=== PATIENT | male | born 1945 | race Caucasian/White ===

== ENCOUNTER → 2016-12-11 | Outpatient (CLI) | payer MEDICARE ==
[2016-12-11 08:59] LABS: CH 30.4; CHCM 33.6; HCT 43.3 % (39.0-53.0); HDW 2.45; HGB 14.8 gm/dL (13.0-17.5); MCHC 34.2 g/dL (31.0-37.0); MCV 90.7 fL (80.0-100.0); Mean Platelet Volume 6.4; RBC 4.77 m/uL (4.30-5.90); RDW 12.5 % (11.5-15.5); WBC 8.1 k/uL (3.8-10.6)
[2016-12-11 09:55] LABS: ALT 50 U/L (21-72); AST 42 U/L (17-59); Alkaline Phosphatase 81 U/L (38-126); Anion Gap 13 mmol/L; Blood Urea Nitrogen 32 mg/dL (9-20); Calcium 9.8 mg/dL (8.4-10.2); Carbon Dioxide 26 mmol/L (22-30); Chloride 103 mmol/L (98-107); Cholesterol 139 mg/dL (<200); Glucose 106 mg/dL (74-99); HDL Cholesterol 39 mg/dL (40-60); Non-African American GFR(MDRD) 51 (>60 ml/min/1.73 sqM); Potassium 5.3 mmol/L (3.5-5.1); Sodium 142 mmol/L (137-145); Total Bilirubin 0.9 mg/dL (0.2-1.3); Total Protein 7.8 g/dL (6.3-8.2); Triglycerides 108 mg/dL (<150)
[2016-12-11 10:42] LABS: Hepatitis C Virus IgG Ab Negative (Negative); Hepatitis C Virus IgG Index 0.01
== END | disposition home or self-care (01) ==
LOC: LABWHC1 08:02
PROVIDERS: ATTEND Internal Medicine Interventional Cardiology
DX: E78.2 Mixed hyperlipidemia (principal); R53.83 Other fatigue; Z11.59 Encounter for screening for other viral diseases; Z12.5 Encounter for screening for malignant neoplasm of prostate
CPT/HCPCS: 36415; 80053; 80061; 84153; 85027; 86803

== ENCOUNTER → 2018-03-03 | Outpatient (CLI) | payer MEDICARE ==
[2018-03-03 08:55] LABS: Calcium 9.7 mg/dL (8.4-10.2); Potassium 5.3 mmol/L (3.5-5.1); Uric Acid 5.7 mg/dL (3.5-8.5)
== END | disposition home or self-care (01) ==
LOC: LABWHC1 07:18
PROVIDERS: ATTEND Internal Medicine Interventional Cardiology
DX: M10.9 Gout, unspecified (principal); E87.8 Other disorders of electrolyte and fluid balance, not elsewhere classified; E78.2 Mixed hyperlipidemia
CPT/HCPCS: 36415; 80048; 80061; 84450; 84460; 84550

== ENCOUNTER → 2018-06-07 | Outpatient (CLI) | payer MEDICARE ==
[2018-06-07 08:25] LABS: HCT 46.9 % (39.0-53.0); HGB 15.3 gm/dL (13.0-17.5); MCH 31.1 pg (25.0-35.0); MCHC 32.6 g/dL (31.0-37.0); MCV 95.2 fL (80.0-100.0); Mean Platelet Volume 6.6; Platelet Count 246 k/uL (150-450); RBC 4.93 m/uL (4.30-5.90); RDW 12.9 % (11.5-15.5); WBC 8.4 k/uL (3.8-10.6)
[2018-06-07 11:41] LABS: Albumin 4.7 g/dL (3.80-4.90); Albumin/Globulin Ratio 1.88 (1.20-2.10); Anion Gap 11.4 mmol/L (4.00-12.00); Calcium 9.9 mg/dL (8.7-10.3); Carbon Dioxide 24.6 mmol/L (21.6-31.8); Globulin 2.5 g/dL (1.6-3.3); Potassium 5.1 mmol/L (3.5-5.5); Total Bilirubin 0.7 mg/dL (0.2-1.2); Total Protein 7.2 g/dL (6.2-8.2)
[2018-06-07 11:42] LABS: LDL Cholesterol,Calculated 60.6 mg/dL (0.0-131.0); VLDL Calculation 45.4 mg/dL (5.00-40.00)
== END ==
LOC: LABWHC1 07:05
PROVIDERS: ATTEND Internal Medicine Interventional Cardiology
DX: E78.2 Mixed hyperlipidemia (principal); E87.8 Other disorders of electrolyte and fluid balance, not elsewhere classified; E78.41 Elevated Lipoprotein(a); N40.0 Benign prostatic hyperplasia without lower urinary tract symptoms; R53.83 Other fatigue
CPT/HCPCS: 36415; 80053; 80061; 84153; 85027

== ENCOUNTER 2018-07-13 09:10 | Day surgery (SDC) | payer MEDICARE ==
[2018-07-09 11:58] VITALS: BMI 29.1
[~2018-07-13 09:10] MED LIST: LIDOCAINE 1% 20 ML VIAL (10MG/ML) FOR IV START INTRADERMA PRN
[2018-07-13 09:34] VITALS: RESP 16; TEMP 97.2
[2018-07-13] MEDS: LACTATED RINGERS 1,000 ML IV SCH ×2 (09:34→10:50)
[2018-07-13] MEDS ORDERED: PROPOFOL 10 MG/ML 20 ML VIAL IV ONE (10:51)
[2018-07-13] MEDS ORDERED: LIDOCAINE 1% INJ 10MG/ML (20 ML MDV) ONE (10:51)
[2018-07-13] MEDS ORDERED: ePHEDrine SULFATE/0.9% NACL/PF 50 MG/5 ML SYRINGE IV ONE (10:51)
--- NOTE | 2018-07-13 11:18 | P.PCN ---
Date of Procedure: 07/13/18 Procedure(s) Performed: Procedure: Total colonoscopy. Preoperative diagnosis: Screening for neoplasia, patient has history of polyps. Postoperative diagnosis: Diverticulosis with no evidence of acute diverticulitis , strictures, polyps or cancer. Preparation: HalfLytely prep. Sedation: Was provided by anesthesia. Brief clinical history: The patient is a 72-year-old male who is scheduled for this evaluation for screening for neoplasia because of history of polyps. His last exam was in 2013. The patient has no abdominal complaints, bleeding or anemia. Procedure: With the patient on his left lateral decubitus position and after informed consent and adequate sedation, the perianal area was inspected and it did not show any fissures or fistulas. There were no masses felt on digital rectal examination. The Olympus CFH 190L video colonoscope was then inserted in the rectum in the usual fashion and advanced to the cecum. There were multiple diverticular orifices seen scattered on the left side mostly in the sigmoid with no evidence of acute diverticulitis or strictures. The mucosa appeared healthy. No polyps or tumors were seen. I retroflexed the endoscope in the rectum before the endoscope was withdrawn. The patient tolerated the procedure well. Plan: The patient was reassured. Discussed dietary measures. He will follow up with you as planned and I recommended repeat exam in 5 years.
[2018-07-13 11:56] VITALS: BP 146/78; PULSE 73
== END 2018-07-13 12:13 | disposition home or self-care (01) ==
LOC: ORWHC2ENDO 09:10
DX: Z12.11 Encounter for screening for malignant neoplasm of colon (principal); Z86.010 Personal history of colon polyps; Z91.041 Radiographic dye allergy status; Z91.013 Allergy to seafood; I25.10 Atherosclerotic heart disease of native coronary artery without angina pectoris; K21.9 Gastro-esophageal reflux disease without esophagitis; I10 Essential (primary) hypertension; E78.5 Hyperlipidemia, unspecified; Z95.1 Presence of aortocoronary bypass graft; Z87.891 Personal history of nicotine dependence; M10.9 Gout, unspecified; Z79.82 Long term (current) use of aspirin; Z79.899 Other long term (current) drug therapy; Z95.5 Presence of coronary angioplasty implant and graft
CPT/HCPCS: J2001; J2704; G0105; 45378

== ENCOUNTER → 2018-08-23 | Outpatient (CLI) | payer MEDICARE ==
[2018-08-23 11:14] LABS: HGB 13.4 gm/dL (13.0-17.5); MCH 30.3 pg (25.0-35.0); MCHC 32.6 g/dL (31.0-37.0); Platelet Count 247 k/uL (150-450); RBC 4.41 m/uL (4.30-5.90); RDW 13.3 % (11.5-15.5); WBC 8.5 k/uL (3.8-10.6)
[2018-08-23 11:25] LABS: Potassium 5.6 mmol/L (3.5-5.1)
== END ==
LOC: LABPAT 10:21
PROVIDERS: ATTEND Internal Medicine Interventional Cardiology
DX: Z01.812 Encounter for preprocedural laboratory examination (principal); I25.118 Atherosclerotic heart disease of native coronary artery with other forms of angina pectoris; I10 Essential (primary) hypertension; E78.2 Mixed hyperlipidemia
CPT/HCPCS: 36415; 80051; 82565; 84520; 85027

== ENCOUNTER 2018-09-01 08:59 | Day surgery (SDC) | payer MEDICARE ==
[~2018-09-01 08:59] MED LIST changes: +ALPRAZolam 0.25 MG TAB PO PRN; +ALPRAZolam 0.5 MG TAB PO PRN; +ASPIRIN 325 MG TAB PO STA; +ATORVASTATIN 80 MG TAB PO STA; -LIDOCAINE 1% 20 ML VIAL (10MG/ML) FOR IV START INTRADERMA PRN; +NITROGLYCERIN SL TABS 0.4 MG TAB SUBLINGUAL PRN
[2018-09-01] MEDS ORDERED: SODIUM CHLORIDE 0.9% 1,000 ML in EMPTY BAG 1 BAG IV ONE (09:00)
[2018-09-01 10:13] LABS: Calcium 9.7 mg/dL (8.4-10.2)
[2018-09-01 10:20] LABS: Potassium 5.2 mmol/L (3.5-5.1)
[2018-09-01] MEDS ORDERED: fentaNYL (PF) 50 MCG/ML 2 ML AMP ONE (12:14)
[2018-09-01] MEDS ORDERED: LIDOCAINE 1% INJ 10MG/ML (20 ML MDV) ONE (12:14)
[2018-09-01] MEDS ORDERED: fentaNYL (PF) 50 MCG/ML 2 ML AMP IV ONE (12:30)
[2018-09-01] MEDS ORDERED: LIDOCAINE 2% INJ 20 MG/ML SQ ONE (12:35)
[2018-09-01] MEDS ORDERED: BIVALIRUDIN BOLUS 250 MG/50 ML IV ONE (12:43)
[2018-09-01] MEDS ORDERED: CLOPIDOGREL 75 MG TAB PO ONE (12:45)
[2018-09-01] MEDS ORDERED: CLOPIDOGREL 75 MG TAB ONE (12:50)
[2018-09-01] MEDS ORDERED: BIVALIRUDIN 250 MG in SODIUM CHLORIDE 0.9% 50 ML IV ONE (12:54)
[2018-09-01] MEDS ORDERED: NITROGLYCERIN 1000MCG/10ML SYRINGE INTRACORON ONE (12:58)
[2018-09-01] MEDS ORDERED: IOPAMIDOL-370 125ML BTL INJ ONE (13:10)
[2018-09-01] MEDS ORDERED: HYDROmorphone 2 MG/ML 1 ML SYRINGE IV ONE (13:14)
[2018-09-01] MEDS ORDERED: MAG HYDROX/AL HYDROX/SIMETH 30 ML CUP PO PRN (13:44)
[2018-09-01] MEDS ORDERED: NITROGLYCERIN SL TABS 0.4 MG TAB SUBLINGUAL PRN (13:44)
[2018-09-01] MEDS ORDERED: ZOLPIDEM 5 MG TAB PO PRN (13:44)
[2018-09-01] MEDS ORDERED: ATROPINE SULFATE 0.1 MG/ML 10ML SYRINGE IV PRN (13:44)
[2018-09-01] MEDS ORDERED: RX INFO: IV CONTRAST WAS GIVEN 1 EACH MISC MISCELLANE PRN (13:44)
[2018-09-01] MEDS ORDERED: SODIUM CHLORIDE 0.9% 1,000 ML IV SCH (13:45)
--- NOTE | 2018-09-01 17:00 | CC ---
CARDIAC CATHETERIZATION REPORT Mr. Johnson is a 73-year-old male with a known history of coronary artery disease, status post coronary artery bypass grafting in 2005, status post stenting in 2004, who recently has been complaining of chest discomfort with physical activity reminding him of the symptoms he had prior to his intervention. In view of that, recommendation was made regarding cardiac catheterization. The procedures, its risks and complication were discussed with the patient, who was in full understanding and agreement. 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 Using Xylocaine anesthesia and Seldinger technique, a 6-Welsh sheath was introduced in the right femoral artery. Selective right and left coronary angiography was performed using 6- Welsh 4 bend, right and left Keith catheters. Multiple views were taken of the arteries, including hemiaxial views. The 6-Welsh right Keith was used to cannulate the saphenous vein graft to the right coronary artery, KLINE to the LAD, and saphenous vein graft to the diagonal branch. Following that, angioplasty and stenting was performed. Following that, a 6-Welsh tight pigtail catheter was introduced in the left ventricle and pressures were calculated. Following that, catheter was removed. Sheath was sutured in place. The patient was returned to his room in stable condition. FINDINGS: FLUOROSCOPY: There was severe calcification involving the coronary arteries. LEFT MAIN: This is a large-sized vessel bifurcating into left anterior descending artery and left circumflex. The left main coronary artery has a 20% plaque distally. LEFT ANTERIOR DESCENDING ARTERY: This vessel is totally occluded proximally with no significant antegrade flow. LEFT CIRCUMFLEX: This is a nondominant vessel giving rise to 2 obtuse marginal branches. The second one is larger in caliber. The left circumflex proximally has a 40% plaque after the previous stent. There is an 80% to 90% stenosis. The rest of the vessel has moderate disease without any evidence of high-grade stenosis. RIGHT CORONARY ARTERY: This vessel is totally occluded proximally with no significant antegrade flow. SAPHENOUS VEIN GRAFT TO DIAGONAL BRANCH: The proximal and distal anastomotic sites are patent. The flow into the diagonal branch is brisk. There is no evidence of high- grade stenosis. SAPHENOUS VEIN GRAFT TO THE RIGHT CORONARY ARTERY: The proximal and distal anastomotic sites are patent. The flow into the PDA is brisk. There is no evidence of high-grade stenosis. KLINE TO THE LAD: The distal anastomotic site is patent. The flow into the LAD is brisk. LEFT VENTRICULOGRAM: Left ventriculogram was not performed. HEMODYNAMICS: There was no gradient across the aortic valve. The left ventricular end- diastolic pressure was 10-12 mmHg. CONCLUSION: 1. Chronically occluded right coronary artery and left anterior descending artery. 2. Critical stenosis in the obtuse marginal branch 1 with moderate disease in the proximal and mid segments of the circumflex. 3. Patent KLINE to LAD. 4. Patent saphenous vein graft to diagonal branch. 5. Patent saphenous vein graft to the right coronary artery. RECOMMENDATIONS: In view of findings and anatomy, I have recommended proceeding with angioplasty and stenting of the left circumflex. The procedure, its risks and complications were discussed with the patient, who is in full understanding and agreement. MMDAVIDL / BELKYSN: [id number] / MTDD
--- NOTE | 2018-09-01 17:12 | PTCA ---
PERCUTANEOUSTRANS CORORONARY ANGIOGRAPHY Mr. Johnson is a 73-year-old male with a known history of coronary artery disease who presented with symptoms of angina pectoris, underwent cardiac catheterization, was found to have significant stenosis involving the first obtuse marginal branch. In view of that, recommendation was made regarding angioplasty and stenting. The procedure as well as risks and complication were discussed with the patient who are in full understanding and agreement. PROCEDURE: A 6-Uzbek FR4 guiding catheter was introduced into the the system. After cannulating the left main, a 0.014 balanced medium weight J-wire was advanced across the lesion and positioned in the distal obtuse marginal branch. Following that, a 2.5 x 12 mm Trek balloon was advanced and one inflation at 10 atmospheres was done. Following that the balloon was removed and a 3.0 x 15 mm Xience Blanca stent was advanced into the system but could not cross in the proximal left circumflex. That stent was removed and a GuideLiner catheter was introduced and with the help of the GuideLiner, the stent was advanced, positioned, deployed and post dilated at 16 atmospheres. After the last inflation, after appropriate wait, the balloon and the guidewire were withdrawn back in the guiding catheter. Images were obtained and repeated. Those images reveal stable successful stenting. At that point, the guiding catheter, the balloon and the guide wire were removed. Left ventricular end-diastolic pressure was calculated. Following that, catheter was removed. Sheath was sutured in place. The patient was returned to his room in stable condition. Of note, the patient received Angiomax per protocol as well as oral loading dose of clopidogrel. He had chest discomfort and EKG changes with the inflations that improved at the end of the procedure. RESULTS: Successful stenting of the first obtuse marginal branch with reduction of stenosis from 80% to 0%. RECOMMENDATION: Patient be continued on aspirin, Plavix and statin. The importance of dual antiplatelet treatment were discussed with the patient and his family who are in full understanding and agreement. Duration of procedure is 59 minutes. MMODL / IJN: [id number] /
[2018-09-01 19:01] VITALS: BMI 28.8
[2018-09-01] MEDS ORDERED: ATORVASTATIN 40 MG TAB PO SCH (21:00)
[2018-09-02 06:21] VITALS: TEMP 98.2
[2018-09-02 07:08] LABS: Calcium 9.4 mg/dL (8.4-10.2); Potassium 4.9 mmol/L (3.5-5.1)
--- NOTE | 2018-09-02 07:49 | PN ---
PROGRESS NOTE Mr. Johnson is a 73-year-old male with known history of coronary artery disease, status post coronary artery bypass grafting who underwent coronary angiography yesterday because of symptoms of angina pectoris, was found to have significant disease in the left circumflex obtuse marginal branch, underwent stenting of that vessel. He is doing well this morning. He is denying any chest pain, his breathing has been stable. He denies any dizziness, palpitation. He denies any nausea. He is continued on aspirin 81 mg daily, Lipitor 40 mg daily, Plavix 75 mg daily, lisinopril 20 mg daily, metoprolol succinate 50 mg daily. PHYSICAL EXAMINATION: Blood pressure 108/60 with a heart rate in the 60s. LUNGS: Clear. HEART: Regular rate and rhythm, S1, S2. No S3 with systolic murmur, no diastolic murmur, no rub. ABDOMEN: Soft, nontender. Positive bowel sounds, no organomegaly. EXTREMITIES: No edema, right groin no hematoma. LAB DATA: Revealed BUN creatinine 37 and 1.49, potassium 4.9. EKG with no acute changes. IMPRESSION: 1. Status post stenting of the left circumflex, stable. 2. History of coronary artery bypass grafting. 3. Hypertension. 4. Hyperlipidemia. 5. Chronic kidney disease, stable. RECOMMENDATION: Patient will be discharged home today and followed in one week. MMODL / IJN: [id number] /
[2018-09-02 08:04] VITALS: BP 94/52; PULSE 71; RESP 18
[2018-09-02] MEDS ORDERED: LISINOPRIL 20 MG TAB PO SCH (09:00)
[2018-09-02] MEDS ORDERED: ALLOPURINOL 100 MG TAB PO SCH (09:00)
[2018-09-02] MEDS ORDERED: NON-FORMULARY DRUG (Ubidecarenone [Co Q-10] 200 MG) PO SCH (09:00)
[2018-09-02] MEDS ORDERED: CLOPIDOGREL 75 MG TAB PO SCH (09:00)
[2018-09-02] MEDS ORDERED: METOPROLOL SUCCINATE (ER) 50 MG TAB.ER.24H PO SCH (09:00)
[2018-09-02] MEDS ORDERED: ASPIRIN 81 MG PO SCH (09:00)
[2018-09-02] MEDS ORDERED: MULTIVITAMINS, THERA 1 EACH TAB PO SCH (12:00)
== END 2018-09-02 09:37 | disposition home or self-care (01) ==
LOC: CATHCVL 08:59 → 3SCARD 13:15 → CATHCVL 09-02 09:37
PROVIDERS: ATTEND Internal Medicine Interventional Cardiology
DX: I25.110 Atherosclerotic heart disease of native coronary artery with unstable angina pectoris (principal); I25.84 Coronary atherosclerosis due to calcified coronary lesion; I12.9 Hypertensive chronic kidney disease with stage 1 through stage 4 chronic kidney disease, or unspecified chronic kidney disease; N18.9 Chronic kidney disease, unspecified; I25.82 Chronic total occlusion of coronary artery; Z87.891 Personal history of nicotine dependence; E78.2 Mixed hyperlipidemia; Z95.1 Presence of aortocoronary bypass graft; I73.9 Peripheral vascular disease, unspecified; Z82.49 Family history of ischemic heart disease and other diseases of the circulatory system; Z79.82 Long term (current) use of aspirin; Z79.899 Other long term (current) drug therapy
CPT/HCPCS: 94760; 93459; 85347; 80048 ×2; C9600; C1769 ×2; C1887 ×2; C1725; C1894; C1874; J2001; J1170; J3010; J0583; Q9967

== ENCOUNTER → 2018-09-08 | Outpatient (CLI) | payer MEDICARE ==
[2018-09-08 19:48] LABS: Anion Gap 7.5 mmol/L (4.00-12.00); Calcium 9.1 mg/dL (8.7-10.3); Carbon Dioxide 24.5 mmol/L (21.6-31.8); Potassium 5.7 mmol/L (3.5-5.5)
== END | disposition home or self-care (01) ==
LOC: LABWHC1 11:20
PROVIDERS: ATTEND Nurse Practitioner Adult Health
DX: N18.9 Chronic kidney disease, unspecified (principal)
CPT/HCPCS: 36415; 80048

== ENCOUNTER → 2018-09-17 | Outpatient (CLI) | payer MEDICARE ==
--- NOTE | 2018-09-17 15:04 | XR ---
EXAMINATION TYPE: XR cervical spine limited DATE OF EXAM: 09/17/2018 COMPARISON: None HISTORY: M9903, and 5 4.51, M9901 TECHNIQUE: Three-view cervical spine FINDINGS: Some facet changes present. Some vascular calcification may be at the left carotid system. Prevertebral space is normal. There is a kyphosis centered at C5. Degenerative disc changes are prese nt C5-6 C6-7. Spondylosis and anterior vertebral body spurring is present C5 and C6. Posterior endpla te spurring is not excluded C6-7. Posterior spinal lamellar line is intact. Tip of the odontoid is li mited due to overlying incisors. IMPRESSION: 1. Degenerative disc changes C5-6 C6-7. 2. Cervical kyphosis lower cervical spine.
--- NOTE | 2018-09-17 16:10 | XR ---
EXAMINATION TYPE: XR lumbar spine 2 or 3V DATE OF EXAM: 09/17/2018 COMPARISON: None HISTORY: Back pain TECHNIQUE: 4 view lumbar spine FINDINGS: 5 lumbar-type tubal bodies. The pedicles are intact. Spondylosis is present. There is disc space narrowing present L1-2, L2-3. No spondylolisthesis is evident. IMPRESSION: 1. Upper lumbar spine degenerative disc changes.
== END | disposition home or self-care (01) ==
LOC: RADXRMAIN 10:30
PROVIDERS: ATTEND Chiropractor
DX: M50.322 Other cervical disc degeneration at C5-C6 level (principal); M47.816 Spondylosis without myelopathy or radiculopathy, lumbar region; M40.292 Other kyphosis, cervical region
CPT/HCPCS: 72040; 72100

== ENCOUNTER → 2018-09-20 | Outpatient (CLI) | payer MEDICARE ==
[2018-09-20 16:37] LABS: Anion Gap 8.5 mmol/L (4.00-12.00); Calcium 9.6 mg/dL (8.7-10.3); Carbon Dioxide 25.5 mmol/L (21.6-31.8)
== END ==
LOC: LABWHC1 10:25
PROVIDERS: ATTEND Nurse Practitioner Adult Health
DX: E87.5 Hyperkalemia (principal); N18.9 Chronic kidney disease, unspecified
CPT/HCPCS: 36415; 80048

== ENCOUNTER → 2018-10-27 | Outpatient (CLI) | payer MEDICARE ==
[2018-10-27 12:23] VITALS: BMI 26.6
== END | disposition home or self-care (01) ==
LOC: DBWHC3 09:51
PROVIDERS: ATTEND Internal Medicine
DX: E87.5 Hyperkalemia (principal)
CPT/HCPCS: 97802

== ENCOUNTER → 2018-12-02 | Outpatient (CLI) | payer MEDICARE ==
[2018-12-02 11:09] LABS: African American GFR (CKD) 53.1 (60.0-200.0); Albumin 4.5 g/dL (3.80-4.90); Albumin/Globulin Ratio 2.25 (1.60-3.17); Anion Gap 7.2 mmol/L (4.00-12.00); BUN/Creat Ratio 20.67 Ratio (12.00-20.00); Calcium 9.6 mg/dL (8.7-10.3); Carbon Dioxide 29.8 mmol/L (21.6-31.8); LDL Cholesterol,Calculated 57.2 mg/dL (0.0-131.0); Potassium 4.2 mmol/L (3.5-5.5); Total Bilirubin 0.8 mg/dL (0.2-1.2); Total Protein 6.5 g/dL (6.2-8.2); VLDL Calculation 17.8 mg/dL (5.00-40.00)
== END | disposition home or self-care (01) ==
LOC: LABWHC1 06:35
PROVIDERS: ATTEND Nurse Practitioner Adult Health
DX: E78.5 Hyperlipidemia, unspecified (principal); N18.9 Chronic kidney disease, unspecified
CPT/HCPCS: 36415; 80053; 80061

== ENCOUNTER → 2019-06-01 | Outpatient (CLI) | payer MEDICARE ==
[2019-06-01 12:02] LABS: African American GFR (CKD) 57.8 (60.0-200.0); Albumin 4.5 g/dL (3.80-4.90); Albumin/Globulin Ratio 2.37 (1.60-3.17); Anion Gap 8.3 mmol/L (4.00-12.00); BUN/Creat Ratio 20.71 Ratio (12.00-20.00); Calcium 9.3 mg/dL (8.7-10.3); Carbon Dioxide 25.7 mmol/L (21.6-31.8); Chol/HDL Ratio 3.27; Globulin 1.9 g/dL (1.6-3.3); LDL Cholesterol,Calculated 57.8 mg/dL (0.0-131.0); Non-African American GFR(CKD) 49.8 (60.0-200.0); Potassium 4.7 mmol/L (3.5-5.5); Total Bilirubin 0.9 mg/dL (0.3-1.2); Total Protein 6.4 g/dL (6.2-8.2); VLDL Calculation 17.2 mg/dL (5.00-40.00)
== END ==
LOC: LABWHC1 06:43
PROVIDERS: ATTEND Nurse Practitioner Family
DX: E78.2 Mixed hyperlipidemia (principal); E87.8 Other disorders of electrolyte and fluid balance, not elsewhere classified; E78.5 Hyperlipidemia, unspecified; I10 Essential (primary) hypertension; Z12.5 Encounter for screening for malignant neoplasm of prostate; R53.83 Other fatigue
CPT/HCPCS: 36415; 80053; 80061

== ENCOUNTER → 2019-06-20 | Outpatient (CLI) | payer MEDICARE ==
[2019-06-20 09:47] LABS: Basophils # (A) 0.1 k/uL (0-0.2); Basophils % (A) 1 %; Eosinophils # (A) 0.2 k/uL (0-0.7); Eosinophils % (A) 3 %; HCT 44.4 % (39.0-53.0); HGB 14.7 gm/dL (13.0-17.5); Lymphocytes # (A) 1.7 k/uL (1.0-4.8); Lymphocytes % (A) 22 %; MCH 30.8 pg (25.0-35.0); MCV 93.2 fL (80.0-100.0); Mean Platelet Volume 7.1; Monocytes # (A) 0.4 k/uL (0-1.0); Monocytes % (A) 5 %; Neutrophils # (A) 5.2 k/uL (1.3-7.7); Neutrophils % (A) 68 %; Platelet Count 239 k/uL (150-450); RBC 4.77 m/uL (4.30-5.90); RDW 12.8 % (11.5-15.5); WBC 7.7 k/uL (3.8-10.6)
== END | disposition home or self-care (01) ==
LOC: LABWHC1 06:43
PROVIDERS: ATTEND Nurse Practitioner Family
DX: I10 Essential (primary) hypertension (principal); E87.8 Other disorders of electrolyte and fluid balance, not elsewhere classified; E78.5 Hyperlipidemia, unspecified; Z12.5 Encounter for screening for malignant neoplasm of prostate; R53.83 Other fatigue
CPT/HCPCS: 85025; 82306; 36415; G0103

== ENCOUNTER → 2019-12-09 | Outpatient (CLI) | payer MEDICARE | END | disposition home or self-care (01) | LOC: LABWHC1 07:00 | PROVIDERS: ATTEND Nurse Practitioner Family | DX: Z20.828 Contact with and (suspected) exposure to other viral communicable diseases (principal) | CPT/HCPCS: 36415; 86769 ==

== ENCOUNTER → 2019-12-21 | Outpatient (CLI) | payer MEDICARE ==
[2019-12-21 11:59] LABS: African American GFR (CKD) 62.7 (60.0-200.0); Albumin 4.2 g/dL (3.80-4.90); Albumin/Globulin Ratio 1.91 (1.60-3.17); Anion Gap 6.3 mmol/L (4.00-12.00); BUN/Creat Ratio 17.69 Ratio (12.00-20.00); Calcium 9.4 mg/dL (8.7-10.3); Carbon Dioxide 27.7 mmol/L (21.6-31.8); Chol/HDL Ratio 2.97; Globulin 2.2 g/dL (1.6-3.3); LDL Cholesterol,Calculated 56.8 mg/dL (0.0-131.0); Non-African American GFR(CKD) 54.1 (60.0-200.0); Potassium 4.7 mmol/L (3.5-5.5); Total Bilirubin 0.8 mg/dL (0.2-1.2); Total Protein 6.4 g/dL (6.2-8.2); VLDL Calculation 12.2 mg/dL (5.00-40.00)
== END | disposition home or self-care (01) ==
LOC: LABWHC1 07:04
PROVIDERS: ATTEND Internal Medicine Interventional Cardiology
DX: E78.2 Mixed hyperlipidemia (principal)
CPT/HCPCS: 36415; 80053; 80061

== ENCOUNTER → 2020-06-06 | Outpatient (CLI) | payer MEDICARE ==
[2020-06-06 11:56] LABS: Chol/HDL Ratio 3.45
== END | disposition home or self-care (01) ==
LOC: LABWHC1 06:59
PROVIDERS: ATTEND Nurse Practitioner Adult Health
DX: E78.2 Mixed hyperlipidemia (principal)
CPT/HCPCS: 36415; 80061; 84450; 84460

== ENCOUNTER 2020-07-25 09:38 | Day surgery (SDC) | payer MEDICARE ==
[2020-07-24 09:16] VITALS: BMI 26.6
[~2020-07-25 09:38] MED LIST changes: -ALPRAZolam 0.25 MG TAB PO PRN; -ALPRAZolam 0.5 MG TAB PO PRN; -ASPIRIN 325 MG TAB PO STA; -ATORVASTATIN 80 MG TAB PO STA; +LACTATED RINGERS 1,000 ML IV SCH; -NITROGLYCERIN SL TABS 0.4 MG TAB SUBLINGUAL PRN
[2020-07-25 10:36] VITALS: TEMP 98.2
[2020-07-25] MEDS ORDERED: PROPOFOL 10 MG/ML 20 ML VIAL IV ONE (11:14)
[2020-07-25] MEDS ORDERED: ePHEDrine SULFATE/0.9% NACL/PF 50 MG/5 ML SYRINGE IV ONE (11:14)
--- NOTE | 2020-07-25 11:30 | P.PCN ---
Date of Procedure: 07/25/20 Procedure(s) Performed: BRIEF HISTORY: Patient is a 74-year-old pleasant male scheduled for an elective colonoscopy as a part of evaluation of Hemoccult-positive stool. PROCEDURE PERFORMED: Colonoscopy snare polypectomy. PREOPERATIVE DIAGNOSIS: Hemoccult-positive stool. IV sedation per Anesthesia. PROCEDURE: After informed consent was obtained, the patient, was brought into the endoscopy unit. IV sedation was administered by Anesthesia under continuous monitoring. Digital rectal examination was normal. Initially the Olympus CF-160 flexible video colonoscope was then inserted in the rectum, gradually advanced into the cecum without any difficulty. Careful examination was performed as the scope was gradually being withdrawn. Ileocecal valve and the appendiceal orifice were visualized and appeared normal. Prep was excellent. Mucosa of the cecum, ascending colon, transverse colon, descending colon, sigmoid colon, and rectum appeared normal. In the distal rectum there was a 1.5 cm broad-based polyp removed by snare polypectomy. Scattered sigmoid diverticulosis seen. Retroflexion was performed in the rectum and grade 2 internal hemorrhoids were seen. The patient tolerated the procedure well. IMPRESSION: 1.5 cm broad-based distal rectal polyp status post polypectomy Scattered sigmoid diverticulosis Grade 2 internal hemorrhoids RECOMMENDATIONS: Findings of this examination were discussed with the patient as his family. He was advised to follow with the biopsy result. If the biopsy shows an adenoma he can have a repeat colonoscopy in. 3 years
[2020-07-25 12:01] VITALS: BP 149/78; PULSE 97; RESP 16
== END 2020-07-25 12:37 | disposition home or self-care (01) ==
LOC: ORWHC2ENDO 09:38
PROVIDERS: ATTEND Internal Medicine Gastroenterology
DX: D12.8 Benign neoplasm of rectum (principal); K57.30 Diverticulosis of large intestine without perforation or abscess without bleeding; K64.1 Second degree hemorrhoids; I25.10 Atherosclerotic heart disease of native coronary artery without angina pectoris; I10 Essential (primary) hypertension; Z95.5 Presence of coronary angioplasty implant and graft; N28.9 Disorder of kidney and ureter, unspecified; Z95.1 Presence of aortocoronary bypass graft; Z98.890 Other specified postprocedural states; Z79.82 Long term (current) use of aspirin; Z79.899 Other long term (current) drug therapy; Z91.048 Other nonmedicinal substance allergy status
CPT/HCPCS: 88305; 45385; J2704

== ENCOUNTER 2020-09-08 09:02 | Emergency (ER) | payer MEDICARE ==
[2020-09-08 09:08] VITALS: RESP 18; TEMP 99.2
--- NOTE | 2020-09-08 09:16 | ED ---
Recheck HPI - General Chief Complaint: ENT Stated Complaint: Sent by pcpshyam in throat Time Seen by Provider: 09/08/20 09:14 Source: patient, RN notes reviewed, old records reviewed Mode of arrival: ambulatory Limitations: no limitations - History of Present Illness Initial Comments: This is a 75-year-old male DF for evaluation of sore throat significant pain and swelling of the rear of his throat with difficulty swallowing. Patient originally states that he was trying to take a cough drop when he was unable to take the cough abdominal. This was last night patient presented to urgent care and sent ER for further evaluation. Patient states he has received one coronavirus vaccine not the second. Patient denying any fevers and again is complaining of sore throat MD Complaint: other (Sore throat) -: days(s) Returns Today for: persistent/worsening pain related to initial visit Symptoms Since Prior Visit: worsening pain Context: planned re-check (Patient was sent to ER for evaluation of significant swelling and throat) Associated Symptoms: none Treatments Prior to Arrival: other (none) - Related Data Home Medications Medication Instructions Recorded Confirmed Metoprolol Succinate [Toprol XL] 50 mg PO QAM 04/13/14 07/25/20 allopurinoL [Zyloprim] 200 mg PO DAILY 07/09/18 07/25/20 Ubidecarenone [Co Q-10] 400 mg PO DAILY 08/26/18 07/25/20 Cholecalciferol (Vitamin D3) 125 mcg PO DAILY 07/24/20 07/25/20 [Vitamin D3 (5000 Iu)] Lisinopril [Zestril] 10 mg PO DAILY 07/24/20 07/25/20 Multivit-Min/Folic/Vit K/Lycop 1 each PO DAILY 07/24/20 07/25/20 [Men's Multivitamin Tablet] Previous Rx's Medication Instructions Recorded Aspirin 81 mg PO DAILY chew 09/02/18 Allergies Allergy/AdvReac Type Severity Reaction Status Date / Time shellfish derived Allergy Severe Rash/Hives Verified 09/08/20 09:04 iodine Allergy Unknown UNKNOWN, Verified 09/08/20 09:04 HAS SHELLFISH ALLERGY Review of Systems ROS Statement: Those systems with pertinent positive or pertinent negative responses have been documented in the HPI. ROS Other: All systems not noted in ROS Statement are negative. Past Medical History Past Medical History: Coronary Artery Disease (CAD), Chest Pain / Angina, Hyperlipidemia, Hypertension Additional Past Medical History / Comment(s): GOUT, occ "heart flutter", back pain., diverticulosis, states positive blood in stool. History of Any Multi-Drug Resistant Organisms: None Reported Past Surgical History: Coronary Bypass/CABG, Heart Catheterization With Stent, Orthopedic Surgery Additional Past Surgical History / Comment(s): RT ROTATOR CUFF, TRIPLE CABG - 2006. STENTS X4, CLAUDINE CATARACTS, colonoscopy Past Anesthesia/Blood Transfusion Reactions: No Reported Reaction Date of Last Stent Placement:: 2018 Past Psychological History: No Psychological Hx Reported Smoking Status: Former smoker Past Alcohol Use History: Rare Past Drug Use History: None Reported - Past Family History Father Family Medical History: Cancer Additional Family Medical History / Comment(s): prostate/colon cancer General Exam Limitations: no limitations General appearance: alert, in no apparent distress Head exam: Present: atraumatic, normocephalic, normal inspection Eye exam: Present: normal appearance, PERRL, EOMI. Absent: scleral icterus, conjunctival injection, periorbital swelling ENT exam: Present: normal exam, mucous membranes moist, other (Patient does appear to have a peritonsillar abscess) Neck exam: Present: normal inspection. Absent: tenderness, meningismus, lymphadenopathy Respiratory exam: Present: normal lung sounds bilaterally. Absent: respiratory distress, wheezes, rales, rhonchi, stridor Cardiovascular Exam: Present: regular rate, normal rhythm, normal heart sounds. Absent: systolic murmur, diastolic murmur, rubs, gallop, clicks GI/Abdominal exam: Present: soft, normal bowel sounds. Absent: distended, tenderness, guarding, rebound, rigid Extremities exam: Present: normal inspection, full ROM, normal capillary refill. Absent: tenderness, pedal edema, joint swelling, calf tenderness Back exam: Present: normal inspection Neurological exam: Present: alert, oriented X3, CN II-XII intact Psychiatric exam: Present: normal affect, normal mood Skin exam: Present: warm, dry, intact, normal color. Absent: rash Course Vital Signs 09/08/20 09:05 Temperature 99.2 F Pulse Rate 85 Respiratory 18 Rate Blood Pressure 148/74 O2 Sat by Pulse 100 Oximetry - Reevaluation(s) Reevaluation #1: 09/08/20 10:33 Medical records reviewed Reevaluation #2: 09/08/20 10:33 Patient symptoms are mildly improved here in the ER with symptomatic therapy Reevaluation #3: 09/08/20 11:30 Patient does feel improved here in the emergency department Reevaluation #4: 09/08/20 11:30 Spoke patient regarding results, to watch for continued abscess formation he could at some point need to strain but there is no current abscess Procedures - Incision & Drainage Consent Obtained: verbal 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 Patient will follow-up with ENT - Lab Data Result diagrams: 09/08/20 09:46 09/08/20 09:46 Lab Results 09/08/20 09/08/20 09/08/20 Range/Units 09:46 09:46 09:46 WBC 14.9 H (3.8-10.6) k/uL RBC 4.61 (4.30-5.90) m/uL Hgb 14.6 (13.0-17.5) gm/dL Hct 42.2 (39.0-53.0) % MCV 91.6 (80.0-100.0) fL MCH 31.7 (25.0-35.0) pg MCHC 34.6 (31.0-37.0) g/dL RDW 12.9 (11.5-15.5) % Plt Count 227 (150-450) k/uL MPV 6.9 Neutrophils % 88 % Lymphocytes % 6 % Monocytes % 5 % Eosinophils % 1 % Basophils % 0 % Neutrophils # 13.1 H (1.3-7.7) k/uL Lymphocytes # 0.9 L (1.0-4.8) k/uL Monocytes # 0.7 (0-1.0) k/uL Eosinophils # 0.1 (0-0.7) k/uL Basophils # 0.0 (0-0.2) k/uL PT 10.1 (9.0-12.0) sec INR 0.9 (<1.2) APTT 23.6 (22.0-30.0) sec Sodium 135 L (137-145) mmol/L Potassium 4.7 (3.5-5.1) mmol/L Chloride 100 (98-107) mmol/L Carbon Dioxide 23 (22-30) mmol/L Anion Gap 12 mmol/L BUN 29 H (9-20) mg/dL Creatinine 1.33 H (0.66-1.25) mg/dL Est GFR (CKD-EPI)AfAm 61 (>60 ml/min/1.73 sqM) Est GFR (CKD-EPI)NonAf 53 (>60 ml/min/1.73 sqM) Glucose 135 H (74-99) mg/dL Calcium 9.3 (8.4-10.2) mg/dL Phosphorus 4.0 (2.5-4.5) mg/dL Magnesium 2.3 (1.6-2.3) mg/dL Total Bilirubin 1.4 H (0.2-1.3) mg/dL AST 34 (17-59) U/L ALT 40 (4-49) U/L Alkaline Phosphatase 126 (38-126) U/L C-Reactive Protein 62.2 H (<10.0) mg/L Total Protein 7.6 (6.3-8.2) g/dL Albumin 4.5 (3.5-5.0) g/dL Disposition Clinical Impression: Acute tonsillitis, Sore throat Disposition: HOME SELF-CARE Condition: Good Instructions (If sedation given, give patient instructions): Tonsillitis (ED) Is patient prescribed a controlled substance at d/c from ED?: No Referrals: Cristopher Cerda MD [STAFF PHYSICIAN] - 1-2 days
[2020-09-08] MEDS ORDERED: KETOROLAC 15 MG/ML 1 ML VIAL IVP STA (09:25)
[2020-09-08] MEDS ORDERED: AMPICILLIN-SULBACTAM 3 GM in SODIUM CHLORIDE 0.9% 100 ML IVPB STA (09:25)
[2020-09-08] MEDS ORDERED: SODIUM CHLORIDE 0.9% 1,000 ML IV STA ×2 (09:25)
[2020-09-08] MEDS ORDERED: DEXAMETHASONE SOD PHOSPHATE 10 MG/ML 1 ML VIAL IV STA (09:25)
[2020-09-08] MEDS ORDERED: FAMOTIDINE 20 MG/2 ML VIAL IV STA (10:03)
[2020-09-08] MEDS ORDERED: diphenhydrAMINE 50 MG/ML 1 ML VIAL IVP STA (10:03)
[2020-09-08 10:08] LABS: Basophils % (A) 0 %; Eosinophils # (A) 0.1 k/uL (0-0.7); Eosinophils % (A) 1 %; HCT 42.2 % (39.0-53.0); HGB 14.6 gm/dL (13.0-17.5); Lymphocytes # (A) 0.9 k/uL (1.0-4.8); Lymphocytes % (A) 6 %; MCH 31.7 pg (25.0-35.0); MCHC 34.6 g/dL (31.0-37.0); MCV 91.6 fL (80.0-100.0); Mean Platelet Volume 6.9; Monocytes # (A) 0.7 k/uL (0-1.0); Monocytes % (A) 5 %; Neutrophils # (A) 13.1 k/uL (1.3-7.7); Neutrophils % (A) 88 %; Platelet Count 227 k/uL (150-450); RBC 4.61 m/uL (4.30-5.90); RDW 12.9 % (11.5-15.5); WBC 14.9 k/uL (3.8-10.6)
[2020-09-08 10:09] LABS: INR 0.9 (<1.2); Partial Thromboplastin Time 23.6 sec (22.0-30.0); Prothrombin Time 10.1 sec (9.0-12.0)
[2020-09-08 10:12] LABS: Albumin 4.5 g/dL (3.5-5.0); C Reactive Protein 62.2 mg/L (<10.0); Calcium 9.3 mg/dL (8.4-10.2); Magnesium 2.3 mg/dL (1.6-2.3); Potassium 4.7 mmol/L (3.5-5.1); Total Bilirubin 1.4 mg/dL (0.2-1.3); Total Protein 7.6 g/dL (6.3-8.2)
[2020-09-08] MEDS ORDERED: BENZOCAINE SPRAY 1 CAN MUCOUS MEM STA (10:34)
--- NOTE | 2020-09-08 11:21 | CT ---
EXAMINATION TYPE: CT soft tissue neck w con DATE OF EXAM: 09/08/2020 COMPARISON: None HISTORY: Mass in throat CT DLP: 311.4 mGycm CONTRAST: CT scan of the neck is performed with IV Contrast, patient injected with 80 mL of Isovue 300. Contrast enhanced CT of the neck was performed from the skull base through the lung apices. AIRWAY: There is fullness and decreased attenuation within the left palatine tonsil and left tonsill ar pillar. The airway mildly displaced from left to right. Correlate for tonsillitis without abscess formation. Clinical correlation advised. Neoplasm not excluded. The glottic, and subglottic portions of the airway appear patent and free of mass. SALIVARY GLANDS: The submandibular and parotid glands are free of mass or inflammatory process. THYROID GLAND: No nodules or masses seen. LYMPH NODES: No adenopathy seen greater than 1cm. LUNG APICES: No nodule or mass is seen. OTHER: Vascular structures are patent. No significant degenerative change of the cervical spine. N o abscess seen. IMPRESSION: There is fullness and decreased attenuation within the left palatine tonsil and left tonsillar pillar . The airway mildly displaced from left to right. Correlate for tonsillitis without abscess formation . Clinical correlation advised. Neoplasm not excluded.
[2020-09-08] MEDS ORDERED: AMOXIC-POT CLAV 875-125MG 1 EACH TAB PO STA (11:29)
[2020-09-08] MEDS ORDERED: AMOXIC-POT CLAV 875MG STARTER PACK 2 TAB BTL PO STA (11:29)
[2020-09-08 11:56] VITALS: BP 149/71; PULSE 74
== END 2020-09-08 12:00 | disposition home or self-care (01) ==
LOC: EC 09:02
DX: J03.90 Acute tonsillitis, unspecified (principal); I25.10 Atherosclerotic heart disease of native coronary artery without angina pectoris; I10 Essential (primary) hypertension; E78.5 Hyperlipidemia, unspecified; Z87.891 Personal history of nicotine dependence
CPT/HCPCS: 36415; 80053; 83735; 84100; 85025; 85610; 85730; 86140; 87040; 70491; 99284; 10060; 96365; 96375; 96361; J1200; J1100; J0295; J1885; Q9967

== ENCOUNTER → 2020-12-19 | Outpatient (CLI) | payer MEDICARE ==
--- NOTE | 2020-12-19 11:19 | US ---
EXAMINATION TYPE: US abdomen complete DATE OF EXAM: 12/19/2020 COMPARISON: NONE CLINICAL HISTORY: R19.5 Other fecal abnormalities. EXAM MEASUREMENTS: Liver Length: 11.8 cm Gallbladder Wall: 0.2 cm CBD: 0.3 cm Spleen: 9.5 cm Right Kidney: 9.7 x 5.3 x 5.1 cm Left Kidney: 11.2 x 5.2 x 5.1 cm Pancreas: obscured by overlying midline bowel gas Liver: limited visualization, scanned intercostally Gallbladder: wnl Evidence for sonographic Chowdary's sign: no CBD: visualized portions wnl, limited by overlying bowel gas Spleen: wnl Right Kidney: wnl Left Kidney: wnl Upper IVC: wnl Abd Aorta: prox portion obscured by overlying midline bowel gas, mid and distal portions wnl The pancreas is obscured by overlying bowel gas. Liver visualization is limited due to intercostal so nographic evaluation. No discrete hepatic mass or intrahepatic biliary dilatation. The proximal aorta is not visualized due to overlying bowel gas. No renal calculi or hydronephrosis. No gallstones, slu dge, or pericholecystic fluid. The spleen is unremarkable visualized portions. IMPRESSION: 1. Study is limited due to overlying bowel gas. The pancreas is obscured. Limited visualization of th e liver and common duct and of proximal abdominal aorta. 2. No gallstones. 3. No renal calculi or hydronephrosis.
== END | disposition home or self-care (01) ==
LOC: RADUSWWP 07:27
PROVIDERS: ATTEND Family Medicine
DX: R19.5 Other fecal abnormalities (principal)
CPT/HCPCS: 76700

== ENCOUNTER → 2021-01-04 | Outpatient (CLI) | payer MEDICARE ==
[2021-01-04 19:22] LABS: African American GFR (CKD) 52.4 (60.0-200.0); Albumin 4.7 g/dL (3.80-4.90); Albumin/Globulin Ratio 1.68 (1.60-3.17); Anion Gap 12.3 mmol/L (4.00-12.00); BUN/Creat Ratio 20.67 Ratio (12.00-20.00); Calcium 9.8 mg/dL (8.7-10.3); Carbon Dioxide 24.7 mmol/L (21.6-31.8); Chol/HDL Ratio 3.31; Globulin 2.8 g/dL (1.6-3.3); LDL Cholesterol,Calculated 60.2 mg/dL (0.0-131.0); Non-African American GFR(CKD) 45.2 (60.0-200.0); Total Bilirubin 0.7 mg/dL (0.2-1.2); Total Protein 7.5 g/dL (6.2-8.2); VLDL Calculation 13.8 mg/dL (5.00-40.00)
== END | disposition home or self-care (01) ==
LOC: LABWHC1 07:23
PROVIDERS: ATTEND Internal Medicine Interventional Cardiology
DX: E78.2 Mixed hyperlipidemia (principal)
CPT/HCPCS: 36415; 80053; 80061

== ENCOUNTER → 2021-01-23 | Outpatient (CLI) | payer MEDICARE ==
--- NOTE | 2021-01-24 05:59 | MR ---
EXAMINATION TYPE: MR abdomen wo con DATE OF EXAM: 01/23/2021 COMPARISON: Ultrasound abdomen complete December 19, 2020 HISTORY: Elevated liver enzymes, Change in bowel Standard multiplanar, multisequence MRI departmental protocol Multiplanar, multisequence images of the abdomen were acquired. Diffusion weighted imaging was perfor med. FINDINGS: Partial visualization of inferior sternal wires. Lung bases are clear. Liver somewhat small in size with slight signal dropout consistent with mild diffuse fatty infiltration. No solid or cyst ic intrahepatic mass. No surrounding ascites. Gallbladder within normal limits. No abnormal biliary d ilatation. Spleen and both adrenal glands appear unremarkable. Pancreas is also within normal limits. The left kidney has a partially exophytic 1.8 cm thin-walled lesion felt to reflect benign cyst posteriorly mi dpole level. No hydronephrosis seen bilaterally. No intra-abdominal ascites. Some scattered colonic diverticula. No suspicious bowel dilatation. Poor distention of stomach. No AAA. Osseous structures show scoliotic curvature with multilevel spurring and disc space narrowing. IMPRESSION: Mild diffuse fatty infiltration of liver.
== END | disposition home or self-care (01) ==
LOC: RADMRIMAIN 09:25
PROVIDERS: ATTEND Family Medicine
DX: K76.0 Fatty (change of) liver, not elsewhere classified (principal)
CPT/HCPCS: 74181

== ENCOUNTER → 2021-07-10 | Outpatient (CLI) | payer MEDICARE ==
[2021-07-10 14:30] LABS: ALT 48 U/L (10-49); AST 40 U/L (14-35); African American GFR (CKD) 50.4 (60.0-200.0); Albumin 4.6 g/dL (3.8-4.9); Albumin/Globulin Ratio 1.52 (1.60-3.17); Alkaline Phosphatase 108 U/L (41-126); BUN/Creat Ratio 22.39 Ratio (12.00-20.00); Blood Urea Nitrogen 34.7 mg/dL (9.0-27.0); Calcium 9.7 mg/dL (8.7-10.3); Carbon Dioxide 22.3 mmol/L (20.0-27.5); Chloride 101 mmol/L (96-109); Chol/HDL Ratio 2.94 Ratio; Glucose 90 mg/dL (70-110); LDL Cholesterol,Calculated 65.2 mg/dL (0.0-131.0); Non-African American GFR(CKD) 43.5 (60.0-200.0); Potassium 5.7 mmol/L (3.5-5.5); Sodium 136 mmol/L (135-145); Total Protein 7.5 g/dL (6.2-8.2); VLDL Calculation 13.26 mg/dL (5.00-40.00)
== END | disposition home or self-care (01) ==
LOC: LABWHC1 07:41
PROVIDERS: ATTEND Internal Medicine Interventional Cardiology
DX: E78.2 Mixed hyperlipidemia (principal)
CPT/HCPCS: 36415; 80053; 80061

== ENCOUNTER → 2022-01-08 | Outpatient (CLI) | payer MEDICARE ==
[2022-01-08 10:41] LABS: ALT 26 U/L (10-49); AST 31 U/L (14-35); African American GFR (CKD) 56.6 (60.0-200.0); Albumin 4.4 g/dL (3.8-4.9); Albumin/Globulin Ratio 1.57 (1.60-3.17); Alkaline Phosphatase 96 U/L (41-126); BUN/Creat Ratio 19.21 Ratio (12.00-20.00); Blood Urea Nitrogen 26.9 mg/dL (9.0-27.0); Calcium 9.6 mg/dL (8.7-10.3); Carbon Dioxide 28.1 mmol/L (20.0-27.5); Chloride 101 mmol/L (96-109); Chol/HDL Ratio 2.82 Ratio; Globulin 2.8 g/dL (1.6-3.3); Glucose 93 mg/dL (70-110); Non-African American GFR(CKD) 48.8 (60.0-200.0); Potassium 4.7 mmol/L (3.5-5.5); Sodium 137 mmol/L (135-145); Total Protein 7.2 g/dL (6.2-8.2); VLDL Calculation 13.72 mg/dL (5.00-40.00)
== END | disposition home or self-care (01) ==
LOC: LABWHC1 07:01
PROVIDERS: ATTEND Internal Medicine Interventional Cardiology
DX: E78.2 Mixed hyperlipidemia (principal)
CPT/HCPCS: 36415; 80053; 80061

== ENCOUNTER → 2022-01-28 | Outpatient (CLI) | payer MEDICARE ==
--- NOTE | 2022-01-29 07:54 | US ---
EXAMINATION TYPE: US scrotum with doppler. DATE OF EXAM: 01/28/2022 COMPARISON: NONE CLINICAL HISTORY: 76-year-old male N50.9 LT SCROTAL MASS. TECHNIQUE: Grayscale and color Doppler Duplex imaging performed of the scrotum. FINDINGS: EXAM MEASUREMENTS: TESTICLES: Right Testicle: 2.9 x 2.1 x 3.0 cm Left Testicle: 3.2 x 1.8 x 2.6 cm EPIDIDYMIS HEAD: Right Epididymis: 0.7 cm Left Epididymis: 0.8 cm. Doppler performed to assess for testicular vascularity; good bilateral color flow and waveforms are s een. There is no evidence of testicular torsion. Presence of hydroceles: no Presence of varicoceles: no Senior Storage Engineer notes: Right cystic area adjacent to testicle measuring 1.5 x 0.9 x 1.0cm Left inferior to testicle, questionably a part of the tail of the epididymis, heterogeneous nodule wi th calcifications measuring 0.6 x 0.7 x 1.0cm IMPRESSION: 1. No sonographic evidence for testicular torsion or testicular mass. 2. A 1.5 x 1.0 cm cyst adjacent to the right testicle, probably an epididymal cyst. 3. Heterogeneous nodule with some calcifications inferior to the left testicle measuring 1 cm. This m ay represent a lesion of the epididymal tail. An adenomatoid tumor or granuloma are considerations. C onsider urology evaluation and follow-up.
== END | disposition home or self-care (01) ==
LOC: RADUSWWP 16:30
PROVIDERS: ATTEND Family Medicine
DX: N50.9 Disorder of male genital organs, unspecified (principal)
CPT/HCPCS: 76870; 93975

== ENCOUNTER 2022-11-20 10:20 | Emergency (ER) | payer MEDICARE ==
[2022-11-20 10:43] VITALS: TEMP 98.1
--- NOTE | 2022-11-20 10:53 | ED ---
General Adult HPI - General Chief complaint: Skin/Abscess/Foreign Body Stated complaint: foreign object in throat Time Seen by Provider: 11/20/22 10:45 Source: patient Mode of arrival: ambulatory Limitations: no limitations - History of Present Illness Initial comments: 77-year-old male presents to the ED with foreign body sensation. Patient states that he was using a plastic toothpick last night when he sneezed. Since then he reports that he has had a foreign body sensation in his throat. States that he feels as if toothpick went down into his throat. He reports that he did not find the toothpick on the floor. Has been able to tolerate fluids. However reports he is not ate any solid foods due to fears of pushing it down. Denies dyspnea. No other complaints. - Related Data Home Medications Medication Instructions Recorded Confirmed Metoprolol Succinate [Toprol XL] 50 mg PO QAM 04/13/14 07/25/20 allopurinoL [Zyloprim] 200 mg PO DAILY 07/09/18 07/25/20 Ubidecarenone [Co Q-10] 400 mg PO DAILY 08/26/18 07/25/20 Cholecalciferol (Vitamin D3) 125 mcg PO DAILY 07/24/20 07/25/20 [Vitamin D3 (5000 Iu)] Multivit-Min/Folic/Vit K/Lycop 1 each PO DAILY 07/24/20 07/25/20 [Men's Multivitamin Tablet] lisinopriL [Zestril] 10 mg PO DAILY 07/24/20 07/25/20 Previous Rx's Medication Instructions Recorded Aspirin 81 mg PO DAILY chew 09/02/18 Amoxic-Pot Clav 875-125Mg 1 tab PO Q12HR #20 tablet 09/08/20 [Augmentin 875-125] Allergies Allergy/AdvReac Type Severity Reaction Status Date / Time shellfish derived Allergy Severe Rash/Hives Verified 11/20/22 10:42 iodine Allergy Unknown UNKNOWN, Verified 11/20/22 10:42 HAS SHELLFISH ALLERGY Review of Systems ROS Statement: Those systems with pertinent positive or pertinent negative responses have been documented in the HPI. ROS Other: All systems not noted in ROS Statement are negative. Past Medical History Past Medical History: Coronary Artery Disease (CAD), Chest Pain / Angina, Hyperlipidemia, Hypertension Additional Past Medical History / Comment(s): GOUT, occ "heart flutter", back pain., diverticulosis, states positive blood in stool. History of Any Multi-Drug Resistant Organisms: None Reported Past Surgical History: Coronary Bypass/CABG, Heart Catheterization With Stent, Orthopedic Surgery Additional Past Surgical History / Comment(s): RT ROTATOR CUFF, TRIPLE CABG - 2005. STENTS X4, CLAUDINE CATARACTS, colonoscopy Past Anesthesia/Blood Transfusion Reactions: No Reported Reaction Date of Last Stent Placement:: 2018 Past Psychological History: No Psychological Hx Reported Smoking Status: Former smoker Past Alcohol Use History: Rare Past Drug Use History: None Reported - Past Family History Father Family Medical History: Cancer Additional Family Medical History / Comment(s): prostate/colon cancer General Exam Limitations: no limitations General appearance: alert, in no apparent distress Head exam: Present: atraumatic, normocephalic Eye exam: Present: normal appearance ENT exam: Present: mucous membranes dry (Tonsils enlarged.) Respiratory exam: Present: normal lung sounds bilaterally (No stridor) Cardiovascular Exam: Present: regular rate, normal rhythm Neurological exam: Present: alert, oriented X3 Skin exam: Present: warm, dry Course Vital Signs 11/20/22 10:38 Temperature 98.1 F Pulse Rate 59 L Respiratory 20 Rate Blood Pressure 140/82 O2 Sat by Pulse 100 Oximetry Medical Decision Making - Medical Decision Making Was pt. sent in by a medical professional or institution ([facility], [facility] [employer], urgent care, hospital, or [place] [facility] facility...) When possible be specific @ -No Did you speak to anyone other than the patient for history (EMS, parent, family, police, friend...)? What history was obtained from this source @ -No Did you review nursing and triage notes (agree or disagree)? Why? @ -I reviewed and agree with nursing and triage notes Were old charts reviewed (outside hosp., previous admission, EMS record, old EKG, old radiological studies, urgent care reports/EKG's, [place] health [facility] facility records)? Report findings @ -No old charts were reviewed Differential Diagnosis (chest pain, altered mental status, abdominal pain women, abdominal pain men, vaginal bleeding, weakness, fever, dyspnea, syncope, headache, dizziness, GI bleed, back pain, seizure, CVA, palpatations, mental health, musculoskeletal)? @ -Pneumothorax, esophageal rupture, pharyngitis. Not meant to be an all- inclusive list. EKG interpreted by me (3pts min.). @ -As above X-rays interpreted by me (1pt min.). @ -Soft tissue x-ray showed no findings. CT interpreted by me (1pt min.). @ -None done U/S interpreted by me (1pt. min.). @ -None done What testing was considered but not performed or refused? (CT, X-rays, U/S, labs)? Why? @ -None What meds were considered but not given or refused? Why? @ -None Did you discuss the management of the patient with other professionals (professionals i.e. DrSheyla, PA, [employer], lab, RT, psych nurse, social professionals, rn relief charge, teacher, transit police officer, case mgr)? Give summary @ -No Was smoking cessation discussed for >3mins.? @ -No Was critical care preformed (if so, how long)? @ -No Were there social determinants of health that impacted care today? How? (Homelessness, low income, unemployed, alcoholism, drug addiction, transportation, low edu. Level, literacy, decrease access to med. care, custodial, rehab)? @ -No Was there de-escalation of care discussed even if they declined (Discuss DNR or withdrawal of care, Hospice)? DNR status @ -No What co-morbidities impacted this encounter? (DM, HTN, Smoking, COPD, CAD, Cancer, CVA, ARF, Chemo, Hep., AIDS, mental health diagnosis, sleep apnea, morbid obesity)? @ -None Was patient admitted / discharged? Hospital course, mention meds given and route, prescriptions, significant lab abnormalities, going to OR and other pert inent info. @ -Discharge. X-ray as above. Patient advised to follow with ENT and given strict return precautions. At discharge vital signs stable. Undiagnosed new problem with uncertain prognosis? @ -No Drug Therapy requiring intensive monitoring for toxicity (Heparin, Nitro, Insulin, Cardizem)? @ -No Were any procedures done? @ -No Diagnosis/symptom? @ -Foreign body sensation Acute, or Chronic, or Acute on Chronic? @ -Acute Uncomplicated (without systemic symptoms) or Complicated (systemic symptoms)? @ -Uncomplicated Side effects of treatment? @ -No Exacerbation, Progression, or Severe Exacerbation? @ -No Poses a threat to life or bodily function? How? (Chest pain, [place], [place], pneumonia, PE, COPD, DKA, ARF, appy, cholecystitis, CVA, Diverticulitis, Homicidal, Suicidal, threat to staff... and all critical care pts) @ -Yes, rule out pneumothorax/esophageal tear. Disposition Clinical Impression: Foreign body sensation in throat Disposition: HOME SELF-CARE Additional Instructions: Please return to the Emergency Department if symptoms worsen or any other concerns. Is patient prescribed a controlled substance at d/c from ED?: No Referrals: Bethany Corrigan MD [Primary Care Provider] - 1-2 days Dru Palomo DO [Doctor of Osteopathic Medicine] - 1-2 days Time of Disposition: 12:24
--- NOTE | 2022-11-20 11:28 | XR ---
EXAMINATION TYPE: XR soft tissue neck DATE OF EXAM: 11/20/2022 11:24 AM INDICATION: Patient age:Male; 77 years old; Reason for study: foreign body sensation; [facility]. COMPARISON: CT neck 09/08/2020, cervical spine radiograph 09/17/2018 TECHNIQUE: The soft tissues of the neck were imaged in 2 views. FINDINGS: The prevertebral soft tissues are unremarkable. There is no evidence of mass effect or trac heal deviation. No acute osseous abnormality demonstrated. Mild cervical degenerative disc disease. Partial visualization of median sternotomy wires. No evidence of subglottic narrowing. IMPRESSION: No significant abnormality identified within the soft tissues of the neck.
[2022-11-20 12:59] VITALS: BP 126/78; PULSE 90; RESP 18
== END 2022-11-20 12:59 | disposition home or self-care (01) ==
LOC: EC 10:20
DX: T17.298A Other foreign object in pharynx causing other injury, initial encounter (principal); I10 Essential (primary) hypertension; I25.10 Atherosclerotic heart disease of native coronary artery without angina pectoris; Z79.899 Other long term (current) drug therapy; Z87.891 Personal history of nicotine dependence; Z91.013 Allergy to seafood; Z88.5 Allergy status to narcotic agent
CPT/HCPCS: 70360; 99283

== ENCOUNTER → 2022-12-11 | Outpatient (CLI) | payer MEDICARE ==
[2022-12-11 11:01] LABS: ALT 51 U/L (10-49); AST 40 U/L (14-35); Albumin 4.6 d/dL (3.8-4.9); Alkaline Phosphatase 94 U/L (41-126); BUN/Creat Ratio 16.67 Ratio (12.00-20.00); Calcium 9.7 mg/dL (8.7-10.3); Carbon Dioxide 28.4 mmol/L (21.6-31.8); Chloride 98 mmol/L (96-109); Globulin 2.3 d/dL (1.6-3.3); Glucose 108 mg/dL (70-110); LDL Cholesterol,Calculated 52.4 mg/dL (0.0-131.0); Potassium 4.7 mmol/L (3.5-5.5); Sodium 136 mmol/L (135-145); Total Bilirubin 0.7 mg/dL (0.3-1.2); Total Protein 6.9 d/dL (6.2-8.2)
== END | disposition home or self-care (01) ==
LOC: LABWHC1 06:56
PROVIDERS: ATTEND Internal Medicine Interventional Cardiology
DX: E78.2 Mixed hyperlipidemia (principal)
CPT/HCPCS: 36415; 80053; 80061

== ENCOUNTER → 2023-02-10 | Outpatient (CLI) | payer MEDICARE ==
[2023-02-10 11:54] LABS: ALT 29 U/L (10-49); AST 33 U/L (14-35); Chol/HDL Ratio 2.53 Ratio; LDL Cholesterol,Calculated 60.5 mg/dL (0.0-131.0); VLDL Calculation 12.62 mg/dL (5.00-40.00)
== END | disposition home or self-care (01) ==
LOC: LABWHC1 07:08
PROVIDERS: ATTEND Nurse Practitioner Adult Health
DX: E78.2 Mixed hyperlipidemia (principal)
CPT/HCPCS: 36415; 80061; 84450; 84460

== ENCOUNTER 2023-06-09 11:32 | Emergency (ER) | payer MEDICARE ==
--- NOTE | 2023-06-09 12:13 | ED ---
Chest Pain HPI - General Source: patient, RN notes reviewed <Dionne Zuleta - Last Filed: 06/09/23 12:12> - General Source: patient, RN notes reviewed Limitations: no limitations <Jonathan Dominique - Last Filed: 06/09/23 17:42> - General Chief Complaint: Arrhythmia/Palpitations Stated Complaint: Heart palpitations,History of Bypass/Stents Time Seen by Provider: 06/09/23 12:12 - History of Present Illness Initial Comments: Patient is 77 show male presented ER chief complaint of heart palpitations. Patient states begun on for the past couple of days. Patient does report that he has had multiple stents in the past. Patient denies any shortness of breath. Patient does endorse mild chills. (Dionne Zuleta) Patient is a pleasant 77-year-old male presenting to the emergency department for complaints of palpitations. Onset of symptoms was the past couple of days. Patient feels like his heart is skipping around a little bit. Patient states symptoms are mild. No history of similar symptoms previously. Patient does have history of previous coronary artery disease and does see cardiology for this. Patient has not seen cardiology for palpitations previous. Patient denies any chest pain. No difficulty breathing. No back pain. No nausea or d iaphoresis. (Jonathan Dominique) - Related Data Home Medications Medication Instructions Recorded Confirmed Metoprolol Succinate [Toprol XL] 50 mg PO QAM 04/13/14 07/25/20 allopurinoL [Zyloprim] 200 mg PO DAILY 07/09/18 07/25/20 Ubidecarenone [Co Q-10] 400 mg PO DAILY 08/26/18 07/25/20 Cholecalciferol (Vitamin D3) 125 mcg PO DAILY 07/24/20 07/25/20 [Vitamin D3 (5000 Iu)] Multivit-Min/Folic/Vit K/Lycop 1 each PO DAILY 07/24/20 07/25/20 [Men's Multivitamin Tablet] lisinopriL [Zestril] 10 mg PO DAILY 07/24/20 07/25/20 Previous Rx's Medication Instructions Recorded Aspirin 81 mg PO DAILY chew 09/02/18 Amoxic-Pot Clav 875-125Mg 1 tab PO Q12HR #20 tablet 09/08/20 [Augmentin 875-125] Allergies Allergy/AdvReac Type Severity Reaction Status Date / Time shellfish derived Allergy Severe Rash/Hives Verified 11/20/22 10:42 iodine Allergy Unknown UNKNOWN, Verified 11/20/22 10:42 HAS SHELLFISH ALLERGY Review of Systems ROS Other: All systems not noted in ROS Statement are negative. <Dionne Zuleta - Last Filed: 06/09/23 12:12> ROS Other: All systems not noted in ROS Statement are negative. Constitutional: Denies: fever Eyes: Denies: eye pain ENT: Denies: ear pain Respiratory: Denies: cough, dyspnea Cardiovascular: Reports: palpitations. Denies: chest pain Endocrine: Denies: fatigue Gastrointestinal: Denies: abdominal pain Musculoskeletal: Denies: back pain <Jonathan Dominique - Last Filed: 06/09/23 17:42> ROS Statement: Those systems with pertinent positive or pertinent negative responses have been documented in the HPI. EKG Findings - EKG Results: EKG: interpreted by ERMD (Sinus arrhythmia), sinus rhythm, normal axis, normal QRS, normal ST/T <Jonathan Dominique - Last Filed: 06/09/23 17:42> Past Medical History Past Medical History: Coronary Artery Disease (CAD), Chest Pain / Angina, Hyperlipidemia, Hypertension Additional Past Medical History / Comment(s): GOUT, occ "heart flutter", back pain., diverticulosis, states positive blood in stool. History of Any Multi-Drug Resistant Organisms: None Reported Past Surgical History: Coronary Bypass/CABG, Heart Catheterization With Stent, Orthopedic Surgery Additional Past Surgical History / Comment(s): RT ROTATOR CUFF, TRIPLE CABG - 2005. STENTS X4, CLAUDINE CATARACTS, colonoscopy Past Anesthesia/Blood Transfusion Reactions: No Reported Reaction Date of Last Stent Placement:: 2018 Past Psychological History: No Psychological Hx Reported Smoking Status: Former smoker Past Alcohol Use History: Rare Past Drug Use History: None Reported - Past Family History Father Family Medical History: Cancer Additional Family Medical History / Comment(s): prostate/colon cancer <Dionne Zuleta - Last Filed: 06/09/23 12:12> General Exam <Dionne Zuleta - Last Filed: 06/09/23 12:12> Limitations: no limitations General appearance: alert, in no apparent distress Head exam: Present: normocephalic Eye exam: Present: normal appearance Neck exam: Present: normal inspection Respiratory exam: Present: normal lung sounds bilaterally Cardiovascular Exam: Present: regular rate, irregular rhythm, normal heart sounds Expanded Peripheral pulses: 2+: Radial (R), Radial (L) GI/Abdominal exam: Present: soft. Absent: tenderness Extremities exam: Present: normal inspection. Absent: pedal edema, calf tenderness Neurological exam: Present: alert Psychiatric exam: Present: normal affect, normal mood Skin exam: Present: normal color <Jonathan Dominique - Last Filed: 06/09/23 17:42> - General Exam Comments Initial Comments: Visual Physical Exam Vital signs reviewed General: Well-appearing, nontoxic, no acute distress. Head: Normocephalic, atraumatic Eyes: PERRLA, EOMI ENT: Airway patent Chest: Nonlabored breathing Skin: No visual rash, normal skin tone Neuro: Alert and oriented 3 Musculoskeletal: No gross abnormalities (Dionne Zuleta) Course Vital Signs 06/09/23 12:49 Temperature 97.9 F Pulse Rate 77 Respiratory 18 Rate Blood Pressure 135/73 O2 Sat by Pulse 98 Oximetry Chest Pain MDM <Dionne Zuleta - Last Filed: 06/09/23 12:12> <Jonathan Dominique - Last Filed: 06/09/23 17:42> - MDM I performed the quick note portion of the exam. Electronically signed by Dionne Zuleta PA-C (Dionne Zuleta) Was pt. sent in by a medical professional or institution ([facility], [facility], urgent care, hospital, or long term...) When possible be specific @ -No Did you speak to anyone other than the patient for history (EMS, parent, family, police, friend...)? What history was obtained from this source @ -No Did you review nursing and triage notes (agree or disagree)? Why? @ -I reviewed and agree with nursing and triage notes Were old charts reviewed (outside hosp., previous admission, EMS record, old EKG, old radiological studies, urgent care reports/EKG's, long term records)? Report findings @ -No old charts were reviewed Differential Diagnosis (chest pain, altered mental status, abdominal pain women, abdominal pain men, vaginal bleeding, weakness, fever, dyspnea, syncope, headache, dizziness, GI bleed, back pain, seizure, CVA, palpatations, mental health, musculoskeletal)? @ -Differential Palpitations Ventricular arrhythmias, atrial arrhythmias, myocardial infarction, anemia, thyrotoxicosis, electrolyte imbalance, hypokalemia, pulmonary embolism, pulmonary disease, drugs, alcohol, anxiety, stress.... This is not meant to be an all-inclusive list. EKG interpreted by me (3pts min.). @ -As above X-rays interpreted by me (1pt min.). @ -Chest x-ray shows no acute process. Postoperative changes. CT interpreted by me (1pt min.). @ -None done U/S interpreted by me (1pt. min.). @ -None done What testing was considered but not performed or refused? (CT, X-rays, U/S, labs)? Why? @ -None What meds were considered but not given or refused? Why? @ -None Did you discuss the management of the patient with other professionals (professionals i.e. , PA, [employer], lab, RT, psych nurse, social science teacher, devops architect, teacher, medical officer psychiatry, continuous pillowcase cutter)? Give summary @ -No Was smoking cessation discussed for >3mins.? @ -No Was critical care preformed (if so, how long)? @ -No Were there social determinants of health that impacted care today? How? (Homelessness, low income, unemployed, alcoholism, drug addiction, transportation, low edu. Level, literacy, decrease access to med. care, longterm, rehab)? @ -No Was there de-escalation of care discussed even if they declined (Discuss DNR or withdrawal of care, Hospice)? DNR status @ -No What co-morbidities impacted this encounter? (DM, HTN, Smoking, COPD, CAD, Cancer, CVA, ARF, Chemo, Hep., AIDS, mental health diagnosis, sleep apnea, morbid obesity)? @ -None Was patient admitted / discharged? Hospital course, mention meds given and route, prescriptions, significant lab abnormalities, going to OR and other pertinent info. @ -Patient presents with palpitations. Patient does have sinus arrhythmia. Patient updated on results and need for follow-up. Patient has no associated chest pain. Patient will follow-up with his doctor, salon receptionist with likely Holter monitor. Patient advised to check his heart rate regularly. Undiagnosed new problem with uncertain prognosis? @ -No Drug Therapy requiring intensive monitoring for toxicity (Heparin, Nitro, Insulin, Cardizem)? @ -No Were any procedures done? @ -No Diagnosis/symptom? @ -Sinus arrhythmia Acute, or Chronic, or Acute on Chronic? @ -Acute Uncomplicated (without systemic symptoms) or Complicated (systemic symptoms)? @ -default Side effects of treatment? @ -No Exacerbation, Progression, or Severe Exacerbation? @ -No Poses a threat to life or bodily function? How? (Chest pain, [place], [place], pneumonia, PE, COPD, DKA, ARF, appy, cholecystitis, CVA, Diverticulitis, Homicidal, Suicidal, threat to staff... and all critical care pts) @ -No (Jonathan Dominique) Disposition <Dionne Zuleta - Last Filed: 06/09/23 12:12> Is patient prescribed a controlled substance at d/c from ED?: No Time of Disposition: 17:42 <Jonathan Dominique - Last Filed: 06/09/23 17:42> Clinical Impression: Sinus arrhythmia Disposition: HOME SELF-CARE Condition: Stable Instructions (If sedation given, give patient instructions): Heart Palpitations (ED) Additional Instructions: Please do follow-up with your primary care physician and salon receptionist in the next day or 2 for recheck. Return for increased heart rate, chest pain, difficulty breathing, worsening or changing symptoms or any other concerns. Referrals: Bethany Corrigan MD [Primary Care Provider] - 1-2 days May Sloan MD [STAFF PHYSICIAN] - 1-2 days
[2023-06-09 13:34] LABS: HCT 46.9 % (39.0-53.0); HGB 15.8 gm/dL (13.0-17.5); MCH 30.9 pg (25.0-35.0); MCHC 33.8 g/dL (31.0-37.0); MCV 91.6 fL (80.0-100.0); Mean Platelet Volume 7.4; Platelet Count 195 k/uL (150-450); RBC 5.12 m/uL (4.30-5.90); RDW 13.1 % (11.5-15.5); WBC 8.5 k/uL (3.8-10.6)
[2023-06-09 13:42] LABS: ALT 51 U/L (4-49); AST 43 U/L (17-59); African American GFR (CKD) 63 (>60 ml/min/1.73 sqM); Albumin 4.5 g/dL (3.5-5.0); Alkaline Phosphatase 109 U/L (38-126); Anion Gap 12 mmol/L; Blood Urea Nitrogen 26 mg/dL (9-20); Calcium 9.8 mg/dL (8.4-10.2); Carbon Dioxide 27 mmol/L (22-30); Chloride 99 mmol/L (98-107); Glucose 107 mg/dL (74-99); Non-African American GFR(CKD) 55 (>60 ml/min/1.73 sqM); Potassium 4.6 mmol/L (3.5-5.1); Sodium 138 mmol/L (137-145); Total Bilirubin 1.1 mg/dL (0.2-1.3); Total Protein 7.6 g/dL (6.3-8.2)
[2023-06-09 13:48] LABS: NT-Pro-B-Type Natriuretic Pept 112 pg/mL
--- NOTE | 2023-06-09 13:51 | XR ---
EXAMINATION TYPE: XR chest 2V DATE OF EXAM: 06/09/2023 1:32 PM CLINICAL INDICATION:Male, 77 years old with history of cough; [facility] COMPARISON: None TECHNIQUE: XR chest 2V Frontal and lateral views of the chest. FINDINGS: Lungs/Pleura: There is no evidence of pleural effusion, focal consolidation, or pneumothorax. Pulmonary vascularity: Unremarkable. Heart/mediastinum: Cardiomediastinal silhouette is unremarkable. Musculoskeletal: No acute osseous pathology. Midline sternotomy wires are noted. Rotator cuff repair changes on the right. Other findings: None IMPRESSION: No acute cardiopulmonary disease/process.
[2023-06-09 18:02] VITALS: BP 128/78; RESP 16; TEMP 98.2
[2023-06-09 18:24] VITALS: PULSE 76
== END 2023-06-09 18:06 | disposition home or self-care (01) ==
LOC: EC 11:32
DX: I49.8 Other specified cardiac arrhythmias (principal); I45.10 Unspecified right bundle-branch block; I25.10 Atherosclerotic heart disease of native coronary artery without angina pectoris; I10 Essential (primary) hypertension; Z87.891 Personal history of nicotine dependence; Z79.899 Other long term (current) drug therapy; Z91.013 Allergy to seafood; Z91.041 Radiographic dye allergy status
CPT/HCPCS: 36415; 71046; 80053; 83880; 84484; 85027; 93005; 99285

== ENCOUNTER → 2024-04-15 | Outpatient (CLI) | payer MEDICARE ==
[2024-04-15 14:58] LABS: Basophils # (A) 0.06 X 10*3/uL (0.00-0.10); Basophils % (A) 0.8 %; Eosinophils # (A) 0.14 X 10*3/uL (0.04-0.35); HCT 45.6 % (39.6-50.0); Lymphocytes # (A) 1.54 X 10*3/uL (0.90-5.00); Lymphocytes % (A) 21.6 %; MCHC 32.9 g/dL (32.0-37.0); MCV 94.2 FL (80.0-97.0); Mean Platelet Volume 9.3 FL (9.5-12.2); NRBC Per 100 WBC 0 X 10*3/uL (0.00-0.01); Neutrophils # (A) 4.87 X 10*3/uL (1.80-7.70); Neutrophils % (A) 68.5 %; Platelet Count 208 X 10*3/uL (140-440); RBC 4.84 X 10*6/uL (4.40-5.60); RDW 12.3 % (11.5-14.5); WBC 7.12 X 10*3/uL (4.50-10.00)
[2024-04-15 16:35] LABS: Albumin 4.3 g/dL (3.8-4.9); Albumin/Globulin Ratio 1.79 Ratio (1.60-3.17); BUN/Creat Ratio 16.38 Ratio (12.00-20.00); Blood Urea Nitrogen 21.3 mg/dL (9.0-27.0); Calcium 9.5 mg/dL (8.7-10.3); Carbon Dioxide 27.9 mmol/L (21.6-31.8); Chloride 105 mmol/L (96-109); Chol/HDL Ratio 2.63 Ratio; Globulin 2.4 g/dL (1.6-3.3); Glucose 111 mg/dL (70-110); LDL Cholesterol,Calculated 60.8 mg/dL (0.0-131.0); Potassium 4.5 mmol/L (3.5-5.5); Sodium 142 mmol/L (135-145); Total Protein 6.7 g/dL (6.2-8.2); VLDL Calculation 13.46 mg/dL (5.00-40.00)
[2024-04-15 16:36] LABS: ALT 39 U/L (10-49); AST 34 U/L (14-35); Alkaline Phosphatase 97 U/L (41-126); Prostate Specific Antigen 1.17 ng/mL (0.000-6.500); Total Bilirubin 0.9 mg/dL (0.3-1.2)
== END | disposition home or self-care (01) ==
LOC: LABWHC1 07:41
PROVIDERS: ATTEND Nurse Practitioner Adult Health
DX: I12.9 Hypertensive chronic kidney disease with stage 1 through stage 4 chronic kidney disease, or unspecified chronic kidney disease (principal); N18.9 Chronic kidney disease, unspecified; E78.2 Mixed hyperlipidemia; E78.5 Hyperlipidemia, unspecified; K76.0 Fatty (change of) liver, not elsewhere classified
CPT/HCPCS: 36415; 80053; 80061; 82306; 82607; 82746; 83036; 84153; 84443; 85025